=== PATIENT | female | born 1970 | race Caucasian/White ===

== ENCOUNTER 2024-12-11 14:01 | Emergency (ER) | payer SELFPAY ==
[~2024-12-11] VITALS: Ht 157.5 cm; Wt 61.2 kg
[~2024-12-11 14:01] MED LIST: Z TRAMADOL HCL PO; Z.0.FLEXERIL10 MG PO
[2024-12-11 15:48] VITALS: PULSE 88; RESP 17; TEMP 98.4
[2024-12-11 17:13] VITALS: BP 148/70; PULSE 77; RESP 16; TEMP 98; O2SAT 98
== END 2024-12-11 17:14 | disposition home or self-care (01) ==
LOC: ER 15:45
DX: S69.82XA Other specified injuries of left wrist, hand and finger(s), initial encounter (principal); X50.0XXA Overexertion from strenuous movement or load, initial encounter; Y92.89 Other specified places as the place of occurrence of the external cause
CPT/HCPCS: 99282